=== PATIENT | male | born 1970 | race Caucasian/White ===

== ENCOUNTER 2016-07-06 15:10 | Emergency (ER) | payer MEDICAID ==
--- NOTE | ~2016-07-06 | ER ---
PATIENT'S NAME: [facility] AGE: 46 Y [address] ROOM: [place] [address] LOCATION: [facility] ADMIT DATE: 07/06/2016 ER/Outpatient Report DISCHARGE DATE: 07/06/2016 FAMILY PHYSICIAN: PHYSICIAN, NO ATTENDING PHYSICIAN: Jose Tse TIME SEEN: 1525 hours. CHIEF COMPLAINT: Right shoulder pain. HISTORY OF PRESENT ILLNESS: The patient is a 46-year-old male, said he just moved to [facility] in the last 2 weeks from [place]. The patient said that about 2 months ago he had a surgery on his right shoulder. The patient said he was in a sling for a while, physical therapy, and recently had a complication with a partial rupture of the biceps tendon. The patient requests pain medications which just included hydrocodone. ALLERGIES: PENICILLIN. CURRENT MEDICATIONS: He has been taking hydrocodone. MEDICAL HISTORY: Denies any chronic diseases. SURGERIES: Right shoulder in April of this year. SOCIAL HISTORY: Denies tobacco or alcohol. He is currently from his . Has 1 child at home. REVIEW OF SYSTEMS: GENERAL: No report of any fevers or chills. HEAD AND EENT: Negative. RESPIRATORY: Negative. MUSCULOSKELETAL: Right shoulder pain. He said he has lost significant motion which they have been trying to get back with physical therapy. Pain is usually worse at night. NEURO: Denied any numbness or tingling in his hands or fingers. PATIENT'S NAME: YUSUF [facility] AGE: 46 Y [address] ROOM: [place] [address] LOCATION: [facility] ADMIT DATE: 07/06/2016 ER/Outpatient Report DISCHARGE DATE: 07/06/2016 FAMILY PHYSICIAN: PHYSICIAN, DAMIÁN ATTENDING PHYSICIAN: Jose Tse OBJECTIVE FINDINGS: VITAL SIGNS: Reviewed. He was afebrile. GENERAL: The patient is alert, did not appear to be in any obvious distress. MUSCULOSKELETAL: On exam of the right shoulder, there is a surgical scar on the top part of it. He did appear to have a slight defect in his biceps tendon. Range of motion was very limited, especially any abduction. Radial pulse was present. ASSESSMENT: Right shoulder pain, post surgical. PLAN: Naprosyn 500 one b.i.d. Recommended frequent use of ice. My recommendations as far as narcotics for pain, he needs to check with his orthopedic surgeon tomorrow. We did give him cards for possible consult with Henrik Arreguin or Srinath Marino. JOHN PAUL GRAY FOR DO SWETA BRIZUELA/conor /[id number] d: 07/06/168 t: 07/14/16 1209, OUTPATIENT REPORT
== END 2016-07-06 15:40 | disposition disaster alternative care site (69) ==
LOC: GMED 15:10
DX: G89.18 Other acute postprocedural pain (principal); M25.511 Pain in right shoulder; Z88.0 Allergy status to penicillin; Z79.899 Other long term (current) drug therapy